=== PATIENT | female | born 1985 | race Caucasian/White ===

== ENCOUNTER 2017-08-05 13:35 | Outpatient (CLI) ==
[2015-01-11 20:43] VITALS: BMI 28.6
--- NOTE | 2017-08-05 16:14 | MRI ---
EXAM: MRI lumbar spine without IV contrast. DATE: 05 August 2017. HISTORY: Lumbar radiculopathy. TECHNIQUE: Sagittal and axial T1W and T2W sequences of the lumbar spine along with sagittal IR and c oronal T2W sequences were obtained using 1.2 Ginger magnet. No IV contrast. COMPARISON: LS spine series 08 June 2014. MRI L-spine 04/17/2013. CT L-spine 09/20/2014. FINDINGS: There are five [id number] lumbar vertebra. Minimal leftward curvature (2 degrees) of lumbar spine is seen. A 3.4 mm anterior subluxation of S1 relative to L5 is noted. No other sublux ation, acute fracture, osseous malignancy, or pars interarticularis defect is identified. Small ante rior osteophytes are seen at L2-3. Lumbar vertebra are normal in height. Chronic Schmorl's nodes ar e seen at L1 and L2. T1W bone marrow signal is similar to that of the intervertebral discs and sligh tly brighter than the paraspinal muscles. Disc desiccation is noted at several lumbar levels. Mild L2-3 and minor L5-S1 disc space narrowing is detected. No sacral fracture or stress reaction is iden tified. SI joints are unremarkable. Conus medullaris terminates at L1-2. Visible spinal cord is no rmal. No retroperitoneal lymphadenopathy, paraspinal mass, or aortic aneurysm is detected. Psoas muscles a re normal. Posterior paraspinal muscles are symmetric bilaterally. Visible portions of the liver, s pleen, adrenal glands and kidneys reveal no definitive abnormality; however, these structures are harper ited by breathing motion artifacts. Segmental analysis: T11-12: Sagittal images reveal minor posterior disc bulge, but no cord compression or central stenos is. Cannot exclude mild left foraminal narrowing. T12-L1: Normal. L1-2: Short pedicles and small posterior disc bulge cause mild central canal stenosis. Each foramen is patent. L2-3: Short pedicles cause triangulation of the canal. Each foramen is patent. L3-4: Short pedicles cause triangulation of the canal. Each foramen is patent. L4-5: Minimal anterior subluxation of L4 (with posterior midline annular fissure) and minor facet ar thropathy cause moderate central canal stenosis and minor left foraminal narrowing. L5-S1: Minor anterior subluxation of S1, small pseudodisc bulge (with midline annular fissure) super imposed midline disc extrusion (3 mm AP x 8 mm transverse x 3.6 mm behind the S1 superior endplate), and mild facet arthropathy cause mild central canal stenosis and minor left foraminal narrowing. IMPRESSIONS: 1. Lumbar spine short pedicles, minor facet arthropathy, and minor DDD. 2. Multilevel central stenosis (L1-2: Mild. L2-3: Minor. L3-4: Minor. L4-5: Moderate. L5-S1: Mil d). 3. Minor foraminal stenoses at L4-5 and L5-S1. No nerve root compression. 4. Small, chronic Schmorl's nodes at L1 and L2. 5. Borderline T1W bone marrow signal. DDX: Normal variation vs red marrow hyperplasia / reconversi on. Correlate for anemia.
== END 2017-08-05 13:36 | disposition home or self-care (01) ==
LOC: RAD 13:35
PROVIDERS: ATTEND Emergency Medicine
DX: M47.26 Other spondylosis with radiculopathy, lumbar region (principal)

== ENCOUNTER 2017-10-11 17:43 | Emergency (ER) ==
[2017-10-11 17:52] VITALS: BP 129/90; TEMP 98.6; BMI 36.1
[2017-10-11] MEDS ORDERED: TORADOL IM STA (19:11)
--- NOTE | 2017-10-11 19:36 | DI ---
EXAM: 4 views of the right ankle HISTORY: Right ankle injury and pain. COMPARISON: Right ankle x-rays 02/03/2012 FINDINGS: No acute abnormality or displaced fracture of the right ankle. The joint spaces maintained . There is an unchanged round sclerotic lesion in the medial malleolus. There is mild degenerative c hange and osteophyte formation of the talus. IMPRESSION: 1. No acute abnormality or displaced fracture of the right ankle. 2. No significant change in mild degenerative disease in the midfoot.
--- NOTE | 2017-10-11 19:39 | ED.PDOC ---
General ED Provider: Dr. VIJAY CURRAN Chief Complaint: Foot Pain/Injury Stated Complaint: Twisted injured to right ankle, it is swollen, hurting to walk. Time Seen by Physician: 19:38 Mode of Arrival: Walk-In Information Source: Patient Primary Care Provider: VIJAY CURRAN-[facility] Nursing and Triage Documentation Reviewed and Agree: Yes Reviewed sepsis parameters & appropriate labs ordered?: No System Inflammatory Response Syndrome: Not Applicable Sepsis Protocol: For patient's 13 years and over: Temp is 96.8 and below OR 101 and greater Pulse >90 BPM Resp >20/minute Acutely Altered Mental Status Are patient's symptoms suggestive of a new infection, such as: -Pneumonia -Skin, Soft Tissue -Endocarditis -UTI -Bone, Joint Infection -Implantable Device -Acute Abdominal Infection -Wound Infection -Meningitis -Blood Stream Catheter Infection -Unknown Musculoskeletal Complaint Exam - Ankle/Foot Complaint/Exam Location of Injury: Reports: Right Mechanism of Injury: Reports: Trauma Symptoms Are: Reports: Still present Onset of Pain: Reports: Immediate Initial Severity: Severe Current Severity: Severe Location: Reports: Discrete Character: Reports: Aching, Throbbing Alleviating: Reports: None Aggravating: Reports: Movement, Weight bearing Able to Bear Weight: Yes Associated Signs and Symptoms: Reports: Swelling. Denies: Redness, Bruising, Fever, Weakness, Numbness, Tingling Gout Risk Factors: Reports: None Related Surgical History: Reports: None Lower Extremity Findings: Present: Swelling, Abnormal contour, Tenderness, Limited range of motion Tenderness: Present: Medial malleolus, Lateral malleolus Limited Range of Motion: Present: Inversion, Eversion, Dorsiflexion, Plantarflexion Differential Diagnosis: Sprain Review of Systems - Review Of Systems Constitutional: Reports: No symptoms Eyes: Reports: No symptoms Ears, Nose, Mouth, Throat: Reports: No symptoms Respiratory: Reports: No symptoms Cardiac: Reports: No symptoms GI: Reports: No symptoms : Reports: No symptoms Musculoskeletal: Reports: Joint pain, Joint swelling Skin: Reports: No symptoms Neurological: Reports: No symptoms Endocrine: Reports: No symptoms Hematologic/Lymphatic: Reports: No symptoms All Other Systems: Reviewed and Negative Past Medical History - Past Medical History Previously Healthy: Yes Endocrine: Reports: None Cardiovascular: Reports: None Respiratory: Reports: None Hematological: Reports: None Gastrointestinal: Reports: None Genitourinary: Reports: None Neuro/Psych: Reports: None Musculoskeletal: Reports: None Cancer: Reports: None Last Menstrual Period: just finished - Surgical History General Surgical History: Reports: None - Family History Family History: Reports: None - Social History Smoking Status: Current every day smoker, Heavy tobacco smoker Smoking Cessation Counseling Time: > 10 min Hx Substance Use: No Alcohol Screening: Occasionally Physical Exam - Physical Exam Appearance: Well-appearing, No pain distress, Well-nourished Eyes: FIDEL, EOMI, Conjunctiva clear ENT: Ears normal, Nose normal, Oropharynx normal Respiratory: Airway patent, Breath sounds clear, Breath sounds equal, Respirations nonlabored Cardiovascular: RRR, Pulses normal, No rub, No murmur GI/: Soft, Nontender, No masses, Bowel sounds normal, No Organomegaly Musculoskeletal: No edema, No calf tenderness, Limited ROM, Limited strength Skin: Warm, Dry, Normal color Neurological: Sensation intact, Motor intact, Reflexes intact, Cranial nerves intact, Alert, Oriented Psychiatric: Affect appropriate, Mood appropriate Interpretation - Radiology Interpretation Radiology Interpretation By: Radiologist Radiology Results: Negative Critical Care Note - Critical Care Note Total Time (mins): 15 Course - Course Orders, Labs, Meds: Orders Category Date Time Status Ketorolac Tromethamine [Toradol] MEDS 10/11/17 19:11 Discontinued 60 mg IM ONCE STA ANKLE, RIGHT MIN 3 VIEWS Stat RADS 10/11/17 19:11 Completed Medications Discontinued Medications Generic Name Dose Route Start Last Admin Trade Name Freq PRN Reason Stop Dose Admin Ketorolac Tromethamine 60 mg 10/11/17 19:11 10/11/17 19:38 Toradol IM 10/11/17 19:12 60 mg ONCE STA Administration Vital Signs: Temp Pulse Resp BP Pulse Ox 10/11/17 17:44 98.6 F 96 H 20 129/90 98 Departure - Departure Time of Disposition: 19:49 Disposition: HOME SELF-CARE Discharge Problem: Ankle sprain Qualifiers: Encounter type: initial encounter Involved ligament of ankle: other ligament Laterality: right Qualified Code(s): S93.491A - Sprain of other ligament of right ankle, initial encounter Instructions: Ankle Exercises (GEN) Condition: Stable Pt referred to PMD for follow-up: Yes IPMP verified?: No Additional Instructions: Rest Hot pack Prescriptions: Hydrocodone/Acetaminophen [[place] 5-325 Tablet] 1 tab PO TID PRN #12 tablet PRN Reason: PAIN Allergies/Adverse Reactions: Allergies Penicillins Adverse Reaction (Verified 10/11/17 17:52) Home Medications: Ambulatory Orders Hydrocodone/Acetaminophen [[place] 5-325 Tablet] 1 tab PO TID PRN #12 tablet 10/11 Disposition Discussed With: Patient
== END 2017-10-11 20:13 | disposition home or self-care (01) ==
LOC: ED 17:43
DX: S93.491A Sprain of other ligament of right ankle, initial encounter (principal); X50.1XXA Overexertion from prolonged static or awkward postures, initial encounter; F17.210 Nicotine dependence, cigarettes, uncomplicated
CPT/HCPCS: 96372; 99282

== ENCOUNTER 2017-11-19 11:03 | Emergency (ER) ==
[2017-11-19 11:10] VITALS: BP 156/107; TEMP 98.2; BMI 35.9
--- NOTE | 2017-11-19 14:00 | ED.PDOC ---
General ED Provider: Dr. ANAYELI SHAW Chief Complaint: Vaginal Discharge/Swelling Stated Complaint: 3 days hx of vaginal pain and burning with urination. Stated her boyfriend recently told her that his ex girlfriend was dx with herpes and that had developed genital infection along with abdominal discomfort. States she believes she has genital herpes based on her self inspection of her genitalia Time Seen by Physician: 11:30 Mode of Arrival: Walk-In Information Source: Patient Exam Limitations: Clinical condition Primary Care Provider: VIJAY CERVANTES Referred to ED by: Other (self) Nursing and Triage Documentation Reviewed and Agree: Yes Reviewed sepsis parameters & appropriate labs ordered?: Yes System Inflammatory Response Syndrome: Not Applicable Sepsis Protocol: For patient's 13 years and over: Temp is 96.8 and below OR 101 and greater Pulse >90 BPM Resp >20/minute Acutely Altered Mental Status Are patient's symptoms suggestive of a new infection, such as: -Pneumonia -Skin, Soft Tissue -Endocarditis -UTI -Bone, Joint Infection -Implantable Device -Acute Abdominal Infection -Wound Infection -Meningitis -Blood Stream Catheter Infection -Unknown System Inflammatory Response Syndrome: Not Applicable Review of Systems - Review Of Systems Constitutional: Reports: Malaise Eyes: Reports: No symptoms Ears, Nose, Mouth, Throat: Reports: No symptoms Respiratory: Reports: No symptoms Cardiac: Reports: No symptoms GI: Reports: No symptoms : Reports: Burning, Dysuria, Pain Musculoskeletal: Reports: No symptoms Skin: Reports: No symptoms Neurological: Reports: No symptoms Endocrine: Reports: No symptoms Hematologic/Lymphatic: Reports: No symptoms All Other Systems: Reviewed and Negative Past Medical History - Past Medical History Previously Healthy: Yes Endocrine: Reports: None Cardiovascular: Reports: None Respiratory: Reports: None Hematological: Reports: None Gastrointestinal: Reports: None Genitourinary: Reports: None Neuro/Psych: Reports: None Musculoskeletal: Reports: None Cancer: Reports: None Last Menstrual Period: 10/10/17 - Surgical History General Surgical History: Reports: None - Family History Family History: Reports: None - Social History Smoking Status: Current every day smoker, Heavy tobacco smoker Hx Substance Use: No Alcohol Screening: Occasionally Physical Exam - Physical Exam Appearance: Ill-appearing Ill-appearing: Moderate Pain Distress: Severe Eyes: FIDEL, EOMI, Conjunctiva clear ENT: Ears normal, Nose normal Neck: Supple Respiratory: Airway patent, Breath sounds clear Cardiovascular: RRR, Pulses normal, No rub, No murmur GI/: Soft (Vaginal edema with multiple herpetic ulcers over labia majora and fourchette/cultures taken), No masses, Bowel sounds normal Musculoskeletal: Normal strength, ROM intact Skin: Warm, Dry, Normal color Neurological: Sensation intact, Motor intact, Reflexes intact, Cranial nerves intact, Alert, Oriented Psychiatric: Affect appropriate, Mood appropriate Critical Care Note - Critical Care Note Total Time (mins): 0 Course - Course Hematology/Chemistry: 11/19/17 14:55 Orders, Labs, Meds: Lab Review 11/19/17 14:55 WBC 5.24 RBC 3.82 L Hgb 12.2 Hct 35.5 L MCV 92.9 MCH 31.9 H MCHC 34.4 RDW Coeff of Sade 13.0 Plt Count 182 Immature Gran % (Auto) 0.4 Neut % (Auto) 54.0 Lymph % (Auto) 29.6 Frontier % (Auto) 11.8 H Eos % (Auto) 3.8 Baso % (Auto) 0.4 Immature Gran # (Auto) 0.0 Neut # (Auto) 2.8 Lymph # (Auto) 1.6 Frontier # (Auto) 0.6 Eos # (Auto) 0.2 Baso # (Auto) 0.0 Orders Category Date Time Status CBC W/ AUTO DIFF Stat LAB 11/19/17 14:55 Completed CHLAMYDIA/GC AMPLIFICATION Stat LAB 11/19/17 14:55 Received CMP [COMPREHENSIVE METABOLIC PANEL] Stat LAB 11/19/17 14:55 Received HCV ANTIBODY Stat LAB 11/19/17 14:55 Received HIV 1/O/2 ANTIBODIES Stat LAB 11/19/17 14:55 Received HSV 1 AND 2 SPECIFIC AB, IGG Stat LAB 11/19/17 14:55 Received RAPID PLASMA REAGIN Stat LAB 11/19/17 14:55 Received VIRAL CULTURE Stat LAB 11/19/17 14:55 Received Hydromorphone HCl [Dilaudid 1 mg/ml Syringe] MEDS 11/19/17 14:00 Discontinued 1 mg IM ONCE STA Ondansetron [Zofran Odt] MEDS 11/19/17 14:01 Discontinued 4 mg PO ONCE STA Medications Discontinued Medications Generic Name Dose Route Start Last Admin Trade Name Freq PRN Reason Stop Dose Admin Hydromorphone HCl 1 mg 11/19/17 14:00 11/19/17 14:10 Dilaudid 1 Mg/Ml Syringe IM 11/19/17 14:01 1 mg ONCE STA Administration Ondansetron HCl 4 mg 11/19/17 14:01 11/19/17 14:08 Zofran Odt PO 11/19/17 14:02 4 mg ONCE STA Administration Vital Signs: Temp Pulse Resp BP Pulse Ox 11/19/17 11:06 98.2 F 85 20 156/107 H 98 Departure - Departure Time of Disposition: 15:15 Disposition: HOME SELF-CARE Discharge Problem: Genital herpes Instructions: Genital Herpes Simplex (ED) Condition: Fair Pt referred to PMD for follow-up: Yes (1 week) IPMP verified?: No Prescriptions: Lidocaine [Topicaine] 30 gm TP 2-4XD #30 gel..gram. Oxycodone HCl/Acetaminophen [Percocet 10-325 mg Tablet] 1 each PO Q4-6H PRN #20 tablet PRN Reason: Pelvic/genital pain Valacyclovir HCl [Valtrex] 1,000 mg PO BID 10 Days #20 tablet Allergies/Adverse Reactions: Allergies Penicillins Adverse Reaction (Verified 11/19/17 11:10) Home Medications: Ambulatory Orders Lidocaine [Topicaine] 30 gm TP 2-4XD #30 gel..gram. 11/19/17 Oxycodone HCl/Acetaminophen [Percocet 10-325 mg Tablet] 1 each PO Q4-6H PRN #20 tablet 11/19/17 Valacyclovir HCl [Valtrex] 1,000 mg PO BID 10 Days #20 tablet 11/19/17 Transfer Form Completed: No (N/I) Disposition Discussed With: Patient, Family (Take meds as directed)
[2017-11-19] MEDS: ZOFRAN ODT PO STA (14:08)
[2017-11-19] MEDS: DILAUDID 1 MG/ML SYRINGE IM STA (14:10)
== END 2017-11-19 15:30 | disposition home or self-care (01) ==
LOC: ED 11:03
DX: A60.00 Herpesviral infection of urogenital system, unspecified (principal); F17.210 Nicotine dependence, cigarettes, uncomplicated
CPT/HCPCS: 36415; 80053; 85025; 86592; 86695; 86696; 86701; 86803; 87252; 87800; 96372; 99283

== ENCOUNTER 2018-04-05 12:22 | Emergency (ER) ==
[2018-04-05 12:31] VITALS: BP 131/84; TEMP 99.8; BMI 34.1
--- NOTE | 2018-04-05 12:43 | ED.PDOC ---
General ED Provider: Dr. GINETTE SMITH Chief Complaint: Tooth Problem Stated Complaint: had toothe extracted 3 days ago on the left lower molar. Has been taking Hydrocodone and motrin but still has severe pain. Time Seen by Physician: 12:30 Information Source: Patient Primary Care Provider: VIJAY CURRAN-[facility] Nursing and Triage Documentation Reviewed and Agree: Yes Does patient meet sepsis criteria?: No If yes, has appropriate treatment been initiated?: No System Inflammatory Response Syndrome: Not Applicable Sepsis Protocol: For patient's 13 years and over: Temp is 96.8 and below OR 101 and greater Pulse >90 BPM Resp >20/minute Acutely Altered Mental Status Are patient's symptoms suggestive of a new infection, such as: -Pneumonia -Skin, Soft Tissue -Endocarditis -UTI -Bone, Joint Infection -Implantable Device -Acute Abdominal Infection -Wound Infection -Meningitis -Blood Stream Catheter Infection -Unknown Review of Systems - Review Of Systems Constitutional: Reports: No symptoms Eyes: Reports: No symptoms Ears, Nose, Mouth, Throat: Reports: Mouth pain, Mouth swelling Respiratory: Reports: No symptoms Cardiac: Reports: No symptoms GI: Reports: No symptoms : Reports: No symptoms Musculoskeletal: Reports: No symptoms Skin: Reports: No symptoms Neurological: Reports: No symptoms Endocrine: Reports: No symptoms Hematologic/Lymphatic: Reports: No symptoms All Other Systems: Reviewed and Negative Past Medical History - Past Medical History Previously Healthy: Yes Endocrine: Reports: None Cardiovascular: Reports: None Respiratory: Reports: None Hematological: Reports: None Gastrointestinal: Reports: None Genitourinary: Reports: None Neuro/Psych: Reports: None Musculoskeletal: Reports: None Cancer: Reports: None Last Menstrual Period: 1 week ago - Surgical History General Surgical History: Reports: None - Family History Family History: Reports: None - Social History Smoking Status: Current every day smoker, Heavy tobacco smoker Hx Substance Use: No Alcohol Screening: Occasionally Physical Exam - Physical Exam Appearance: Well-appearing, Well-nourished Pain Distress: Moderate Eyes: FIDEL, EOMI, Conjunctiva clear ENT: Ears normal, Nose normal, Oropharynx normal Neck: Supple Respiratory: Airway patent, Breath sounds clear, Breath sounds equal, Respirations nonlabored Cardiovascular: RRR, Pulses normal, No rub, No murmur Skin: Warm, Dry, Normal color Neurological: Sensation intact, Motor intact, Alert, Oriented Psychiatric: Affect appropriate, Mood appropriate Critical Care Note - Critical Care Note Total Time (mins): 0 Course - Course Vital Signs: Temp Pulse Resp BP Pulse Ox 04/05/18 12:22 99.8 F H 108 H 18 131/84 95 Departure - Departure Time of Disposition: 12:41 Disposition: HOME SELF-CARE Discharge Problem: Pain due to dental caries, Status post tooth extraction Instructions: Dental Abscess (ED), Toothache (ED) Condition: Good Pt referred to PMD for follow-up: Yes IPMP verified?: No Additional Instructions: continue home pain medications Take antibiotics until done Follow up with dentist in 3-5 days Prescriptions: Clindamycin HCl 300 mg PO TID #30 capsule Allergies/Adverse Reactions: Allergies Penicillins Adverse Reaction (Verified 04/05/18 12:25) Home Medications: Ambulatory Orders Clindamycin HCl 300 mg PO TID #30 capsule 04/05/18 Disposition Discussed With: Patient, Family
== END 2018-04-05 12:55 | disposition home or self-care (01) ==
LOC: ED 12:22
DX: K08.89 Other specified disorders of teeth and supporting structures (principal); K02.7 Dental root caries; Z98.890 Other specified postprocedural states; F17.210 Nicotine dependence, cigarettes, uncomplicated
CPT/HCPCS: 99282

== ENCOUNTER 2018-06-26 20:28 | Emergency (ER) ==
[2018-06-26 20:35] VITALS: BP 141/99; TEMP 98.4; BMI 32.4
[2018-06-26] MEDS ORDERED: DILAUDID 1 MG/ML SYRINGE IVP STA (21:02)
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
[2018-06-26] MEDS ORDERED: ZOFRAN 4 MG/2 ML ONE (21:20)
[2018-06-26] MEDS ORDERED: ZOFRAN 4 MG/2 ML IVP STA (21:44)
[2018-06-26] MEDS ORDERED: TORADOL IVP STA (22:01)
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
[2018-06-26] MEDS ORDERED: ED AFTER HOURS SUPPLY MED SENT HOME PO ONE (23:43)
[2018-06-26] MEDS ORDERED: ATIVAN ONE (23:51)
== END 2018-06-26 23:50 | disposition home or self-care (01) ==
LOC: ED 20:28
DX: S13.9XXA Sprain of joints and ligaments of unspecified parts of neck, initial encounter (principal); S20.229A Contusion of unspecified back wall of thorax, initial encounter; S09.90XA Unspecified injury of head, initial encounter; T74.21XA Adult sexual abuse, confirmed, initial encounter; T07.XXXA Unspecified multiple injuries, initial encounter; R07.9 Chest pain, unspecified; R10.9 Unspecified abdominal pain; Y08.02XA Assault by strike by baseball bat, initial encounter; F17.210 Nicotine dependence, cigarettes, uncomplicated
CPT/HCPCS: 36415; 80053; 84703; 85025; 96375; 99283

== ENCOUNTER 2019-04-17 11:43 | Outpatient (CLI) | END 2019-04-17 12:00 | disposition short-term general hospital (02) | LOC: AMBL 11:43 | PROVIDERS: ATTEND Internal Medicine | DX: M54.5 Low back pain (principal); R39.198 Other difficulties with micturition; R33.9 Retention of urine, unspecified; R00.0 Tachycardia, unspecified ==